=== PATIENT | female | born 1985 | race Caucasian/White ===

== ENCOUNTER 2022-04-07 02:47 | Emergency (ER) | payer OTHER ==
[2022-04-07 02:54] VITALS: BP 119/79; PULSE 78; TEMP 98; BMI 25.7
[2022-04-07] MEDS ORDERED: ONDANSETRON 4 MG/2 ML VIAL IVPUSH ONE (03:05)
[2022-04-07] MEDS ORDERED: SODIUM CHLORIDE 1,000 ML IV STA (03:05)
[2022-04-07] MEDS ORDERED: ONDANSETRON 4 MG/2 ML VIAL ONE (03:18)
[2022-04-07] MEDS ORDERED: ACETAMINOPHEN INJECTION 100 ML IVPB ONE (03:19)
[2022-04-07] MEDS ORDERED: ACETAMINOPHEN 1000 MG/100 ML BAG IVPB ONE (03:19)
[2022-04-07 03:58] LABS: PH,URINE 5.5 (5.0-8.0); URINE APPEARANCE CLEAR; URINE BILIRUBIN NEGATIVE (NEGATIVE); URINE COLOR YELLOW; URINE GLUCOSE (UA) NEGATIVE (NEGATIVE); URINE KETONE NEGATIVE (NEGATIVE); URINE LEUK ESTERASE NEGATIVE (NEGATIVE); URINE NITRITE NEGATIVE (NEGATIVE); URINE PROTEIN NEGATIVE (NEGATIVE); URINE UROBILINOGEN 0.2 mg/dL (0.2-1.0)
[2022-04-07 04:00] LABS: BASO % 0.3 % (0-2.0); HEMATOCRIT 37.8 % (32.4-45.2); HEMOGLOBIN 12.5 GM/dL (10.7-15.3); LYMPH % 38.2 % (8-40); MCH 27.2 pg (25.7-33.7); MEAN CELL VOLUME 82.5 fl (80-96); MEAN PLT VOLUME 9.1 fl (7.5-11.1); NEUT % 50.5 % (42.8-82.8); PLATELET COUNT 248 10^3/uL (134-434); RBC 4.58 M/mm3 (3.60-5.2); WHITE BLOOD COUNT 4.9 K/mm3 (4.0-10.0)
[2022-04-07 04:19] LABS: CALCIUM 9.6 mg/dL (8.5-10.1)
[2022-04-07 04:20] LABS: BLOOD UREA NITROGEN 22.1 mg/dL (7-18)
[2022-04-07 04:22] LABS: CREATININE 0.8 mg/dL (0.55-1.3)
[2022-04-07 04:24] LABS: BILIRUBIN,TOTAL 0.3 mg/dL (0.2-1); TOT PROT 7.2 g/dl (6.4-8.2)
[2022-04-07 05:20] LABS: HCG,QUALITATIVE URINE Negative
== END 2022-04-07 04:47 | disposition home or self-care (01) ==
LOC: FER 02:47
PROC: 3E033GC Introduction of Other Therapeutic Substance into Peripheral Vein, Percutaneous Approach (ICD-10-PCS; principal; 2022-04-07)
DX: R10.30 Lower abdominal pain, unspecified (principal)
CPT/HCPCS: 36415; 74176-TC; 80053; 81003; 83690; 84703; 85025; 99285-25